=== PATIENT | female | born 1995 ===

== ENCOUNTER 2022-05-26 09:52 | Outpatient (CLI) | payer OTHER | END 2022-05-26 09:58 | disposition home or self-care (01) | LOC: RX STUDY 09:52 → EDBD 09:52 → RX STUDY 09:58 | DX: N91.2 Amenorrhea, unspecified (principal); N93.9 Abnormal uterine and vaginal bleeding, unspecified; Q50.6 Other congenital malformations of fallopian tube and broad ligament ==